=== PATIENT | male | born 1985 | race Caucasian/White ===

== ENCOUNTER 2019-07-02 14:23 | Emergency (ER) | payer OTHER ==
[~2019-07-02] VITALS: Ht 182.9 cm; Wt 79.4 kg
[~2019-07-02 14:23] MED LIST: NOHOMEMEDICATIONS
[2019-07-02 14:43] LABS: ABSOLUTE NEUTROPHILS 3.5 thou/uL (1.4-8.2); BASOPHILS 0.7 % (0.0-2.0); EOSINOPHILS 1.1 % (0.0-3.0); HEMATOCRIT 36.1 % (42.0-52.0); HEMOGLOBIN 12.1 gm/dL (14.0-18.0); LYMPHOCYTES 26.3 % (24.0-44.0); MCH 29.8 pg (26.0-34.0); MCHC 33.4 g/dL (28.0-37.0); MCV 89.2 fL (80.0-100.0); MONOCYTES 6.6 % (1.0-8.0); PLATELET COUNT 190 thou/uL (150-400); POLYS 65.3 % (36.0-66.0); RBC 4.05 mil/uL (4.50-6.00); RDW 18.2 % (10.5-14.5); WBC 5.3 thou/uL (4.0-11.0)
[2019-07-02 14:57] LABS: ANION GAP 14 mmol/L (7-16); BUN 4 mg/dL (7-18); CALCIUM 8.1 mg/dL (8.5-10.1); CHLORIDE 102 mmol/L (98-107); CO2 24 mmol/L (21-32); CREATININE 0.7 mg/dL (0.7-1.3); GLUCOSE 110 mg/dL (74-106); SODIUM 140 mmol/L (136-145)
[2019-07-02 15:00] LABS: POTASSIUM 3.8 mmol/L (3.5-5.1)
[2019-07-02 15:07] LABS: ALBUMIN 3.6 g/dL (3.4-5.0); SGOT 153 U/L (15-37); SGPT 114 U/L (30-65); TOTAL BILIRUBIN 0.4 mg/dL (<0.1-1.0); TOTAL PROTEIN 6.7 g/dL (6.4-8.2); TROPONIN-I <0.06 ng/mL (<0.06)
[2019-07-02 15:33] LABS: URINE BILIRUBIN NEGATIVE (Negative); URINE BLOOD NEGATIVE (Negative); URINE CLARITY CLEAR; URINE COLOR YELLOW; URINE GLUCOSE-RANDOM* NEGATIVE (Negative); URINE KETONES NEGATIVE (Negative); URINE LEUKOCYTES-REFLEX NEGATIVE (Negative); URINE NITRITE-REFLEX NEGATIVE (Negative); URINE PROTEIN (DIPSTICK) TRACE (Negative); URINE SPECIFIC GRAVITY >= 1.030 (1.005-1.035); URINE UROBILINOGEN 0.2 E.U./dl (0.2-1.0)
[2019-07-02 15:39] LABS: AMP/METHAMP Negative (Negative); BARBITURATES Negative (Negative); BENZODIAZEPINES Negative (Negative); COCAINE Negative (Negative); METHADONE Negative (Negative); OPIATES Negative (Negative); PCP Negative (Negative)
--- NOTE | 2019-07-02 16:24 | EKG ---
[place] [address] [address] [facility] [place] [address] ELECTROCARDIOGRAM REPORT Name: KIMBERLY DUNCAN Room #: [facility] Antoine#: [id number] Admission: 07/02/19 Attend Phys: Discharge: Date of : 87 Report #: [id number] THIS REPORT FOR: //name// [facility] ED Test Date: 2019-07-02 Test Time: 14:24:32 Pat Name: KIMBERLY DUNCAN Department: Room: Gender: Dot Compliance Coordinator: : 1985 Requested By: Libby Fisher Order Number: [id number] MD: Sunday Matamoros Measurements Intervals [place] Rate: 89 P: 48 MA: 157 QRS: 10 QRSD: 105 T: 32 QT: 386 QTc: 470 Interpretive Statements Sinus rhythm Normal tracing No previous ECG available for comparison Electronically Signed On 07-02-2019 16:24:16 [employer] by Sunday Matamoros [email or web address] <ELECTRONICALLY SIGNED> By: Sunday Matamoros MD, [facility] 07/02/19 1624 1424 1424 Sunday Matamoros MD, FACC /EPI
[2019-07-02 18:39] VITALS: BP 121/84
[2019-07-02 22:48] LABS: ANISOCYTOSIS 2+; POLYCHROMASIA OCCASIONAL
== END 2019-07-02 18:00 | disposition home or self-care (01) ==
LOC: ER 14:23
PROVIDERS: Nurse Practitioner Family
DX: F10.129 Alcohol abuse with intoxication, unspecified (principal); R41.82 Altered mental status, unspecified; R94.5 Abnormal results of liver function studies; Z77.22 Contact with and (suspected) exposure to environmental tobacco smoke (acute) (chronic); Y90.8 Blood alcohol level of 240 mg/100 ml or more